=== PATIENT | male | born 1965 | race Caucasian/White ===

== ENCOUNTER 2019-06-18 15:02 | Inpatient (IN) ==
[2019-06-18 15:23] LABS: Bilirubin,Urine Large (Negative); Blood,Urine Negative (Negative); Clarity,Urine Clear (Clear); Color,Urine Yellow (Yellow); Glucose,Urine (UA) Normal (Normal); Ketones,Urine Negative (Negative); Leukocyte Esterase,Urine Negative (Negative); Nitrite,Urine Negative (Negative); Protein,Urine Trace mg/dL (Neg-Trace); Urobilinogen,Urine Normal (Normal)
[2019-06-18 15:30] LABS: Amphetamine Screen,Urine Negative ng/mL (Cutoff=1000); Barbiturate Screen,Urine Negative ng/mL (Cutoff=200); Benzodiazepines Screen,Urine Negative ng/mL (Cutoff=200); Cannabinoid Screen,Urine Negative ng/mL (Cutoff = 50); Cocaine Screen,Urine Negative ng/mL (Cutoff= 300); Opiate Screen,Urine Negative ng/mL (Cutoff=300); Phencyclidine Screen,Urine Negative ng/mL (Cutoff=25)
[2019-06-18 15:34] LABS: Basophils % 0.4 %; Eosinophils % 0.6 %; Hematocrit 44.3 % (37.5-50.1); Hemoglobin 14.2 g/dL (12.9-16.9); Immature Granulocytes % 0.2 % (0-4); Lymphocytes # 1.3 K/mcL (0.6-4.6); Lymphocytes % 26.6 %; Mean Corpuscular HGB Conc 32.1 g/dL (31.6-35.5); Mean Corpuscular Hemoglobin 29.2 pg (28.0-33.3); Mean Corpuscular Volume 91.2 fL (83.0-100.0); Mean Platelet Volume 10.3 fL (9.4-12.4); Monocytes # 0.3 K/mcL (0.0-1.3); Monocytes % 7.2 %; Neutrophils # 3.1 K/mcL (1.6-8.9); Platelet Count 205 K/mcL (140-400); Red Blood Count 4.86 M/mcL (4.19-5.50); Red Cell Distribution Width 14.1 % (11.5-14.5); White Blood Count 4.7 K/mcL (4.3-11.1)
[2019-06-18 16:18] LABS: Acetaminophen < 10 mcg/mL (10-20); BUN/Creatinine Ratio 15 (6-26); Blood Urea Nitrogen 15 mg/dL (6-20); Calcium 9.3 mg/dL (8.6-10.3); Carbon Dioxide 25 mEq/L (23-29); Chloride 110 mEq/L (98-107); Ethanol < 10 mg/dL (Less than 10); Glucose 74 mg/dL (70-105); Osmolality,Calculated 295 (280-300); Potassium 3.4 mEq/L (3.5-5.1); Salicylate < 2.5 mg/dL (15.0-30.0); Sodium 143 mEq/L (136-145); eGFR For African Americans > 60 (> 60); eGFR For Non-African Americans > 60 (> 60)
[2019-06-18] MEDS ORDERED: traZODone 50 MG TABLET PO PRN (17:15)
[2019-06-18] MEDS ORDERED: MOM Conc 10 ML UD.LIQ PO PRN (17:15)
[2019-06-18] MEDS ORDERED: *HR* LORazepam 2 MG/ML VIAL IM PRN (17:15)
[2019-06-18] MEDS ORDERED: Haloperidol Lactate 5 MG/ML VIAL IM PRN (17:15)
[2019-06-18] MEDS ORDERED: *HR* LORazepam 1 MG TABLET PO PRN (17:15)
[2019-06-18] MEDS ORDERED: Acetaminophen 325 MG TABLET PO PRN (17:15)
[2019-06-18] MEDS ORDERED: Mag Hydrox/Al Hydrox/Simeth 30 ML UDC PO PRN (17:15)
[2019-06-18] MEDS ORDERED: haloperidoL 5 MG TABLET PO PRN (17:15)
[2019-06-18] MEDS: Nicotine 14 MG PATCH.TD24 TD SCH (19:03)
[2019-06-18] MEDS: hydrOXYzine pamoate 25 MG CAPSULE PO PRN (19:47)
[2019-06-19] MEDS: Nicotine 14 MG PATCH.TD24 TD SCH (08:47)
[2019-06-19] MEDS ORDERED: traZODone 50 MG TABLET PO PRN (11:31)
[2019-06-19] MEDS: Aspirin Enteric Coated 81 MG Tablet PO SCH (13:46)
[2019-06-19] MEDS ORDERED: traZODone 50 MG TABLET PO SCH (21:00)
[2019-06-19] MEDS: hydrOXYzine pamoate 25 MG CAPSULE PO PRN (21:42)
[2019-06-20 07:47] VITALS: BP 171/92
[2019-06-20] MEDS ORDERED: *HR* Metformin 500 MG TABLET PO SCH (08:00)
[2019-06-20] MEDS: Nicotine 14 MG PATCH.TD24 TD SCH (08:30)
[2019-06-20] MEDS: Aspirin Enteric Coated 81 MG Tablet PO SCH (08:31)
== END 2019-06-20 11:25 | disposition home or self-care (01) | DRG 885 ==
LOC: EMEROOARM 15:02 → 1ANU 17:13
PROVIDERS: ADMIT Psychiatry & Neurology Psychiatry; ATTEND Psychiatry & Neurology Psychiatry